=== PATIENT | female | born 1950 | race Caucasian/White ===

== ENCOUNTER 2023-12-27 08:44 | Outpatient (CLI) | payer MEDICARE, OTHER | END 2023-12-27 08:45 | disposition home or self-care (01) | LOC: CSHCT 08:44 | PROVIDERS: ATTEND Orthopaedic Surgery | DX: M17.11 Unilateral primary osteoarthritis, right knee (principal); M71.21 Synovial cyst of popliteal space [Baker], right knee; Z01.818 Encounter for other preprocedural examination | CPT/HCPCS: 71046; 80048; 81003; 85025; 85610; 87081; 93005; 93010 ==

== ENCOUNTER 2023-12-29 10:23 | Outpatient (CLI) | payer MEDICARE, OTHER | END 2023-12-29 10:24 | disposition home or self-care (01) | LOC: CSHCT 10:23 | PROVIDERS: ATTEND Orthopaedic Surgery | DX: Z01.818 Encounter for other preprocedural examination (principal); M17.11 Unilateral primary osteoarthritis, right knee ==